=== PATIENT | male | born 1940 | race Caucasian/White ===

== ENCOUNTER 2017-04-06 11:49 | Emergency (ER) | payer OTHER ==
[~2017-04-06] VITALS: Ht 185.4 cm; Wt 86.0 kg
[~2017-04-06 11:49] MED LIST: CEPH500C3 PO; GLUC500C56 PO; TAB-TAB PO; ZOCO40TA PO
[2017-04-06 12:00] VITALS: BP 148/80; PULSE 94; RESP 16; TEMP 98.3; O2SAT 95
--- NOTE | 2017-04-06 13:24 | PD ---
HPI Chief Complaint: Psychiatric Symptoms Time Seen by Provider: 13:22 Travel History International Travel<30 days: No Contact w/Intl Traveler<30days: No Traveled to known affect area: No History of Present Illness HPI Patient comes in under a [place] act by police for suicidal statements. Patient denies any suicidal or homicidal ideations. Patient states that his brother just wanted to get rid of him because [place]. Denies any medical complaints this time. Denies any chest pain, shortness of breath, developing, fevers, change in bowel or bladder, or numbness or tingling anywhere. Denies anything making it better or worse. PFSH Past Medical History Cancer: Yes (PSA WAS ELEVATED IN PROSTATE GOT RADIATION FOR IT ) Social History Alcohol Use: No Tobacco Use: No Substance Use: No Allergies-Medications (Allergen,Severity, Reaction): Coded Allergies: No Known Allergies (Verified Allergy, Mild, 10/23/07) Reported Meds & Prescriptions Reported Meds & Active Scripts Active Review of Systems Except as stated in HPI: all other systems reviewed are Neg Physical Exam Narrative GENERAL: Well-developed, well nourished, in no acute distress, and non-ill appearing. SKIN: Focused skin assessment warm and dry. Patient is well-healing sutures noted on scalp there dry clean intact. There is no signs of infection. HEAD: Atraumatic. Normocephalic. EYES: Pupils equal and round. EOMI. No scleral icterus. No injection or drainage. ENT: No nasal bleeding or discharge. Mucous membranes pink and moist. NECK: Trachea midline. Supple. No nuclear rigidity. CARDIOVASCULAR: Regular rate and rhythm. No murmur appreciated. RESPIRATORY: No accessory muscle use. No respiratory distress. Clear to auscultation. Breath sounds equal bilaterally. MUSCULOSKELETAL: No obvious deformities. No clubbing. No cyanosis. No edema. Full range of motion. NEUROLOGICAL: Awake and alert. No obvious cranial nerve deficits. Motor grossly within normal limits. Normal speech. PSYCHIATRIC: Appropriate mood and affect; insight and judgment normal. Data Data Last Documented VS Vital Signs Date Time Temp Pulse Resp B/P (MAP) Pulse Ox O2 Delivery O2 Flow Rate FiO2 04/06/17 12:00 98.3 94 16 148/80 (102) 95 Orders Orders Complete Blood Count With Diff (04/06/17 12:53) Comprehensive Metabolic Panel (04/06/17 12:53) Psych Screen (04/06/17 12:53) Drug Screen, Random Urine (04/06/17 12:53) Alcohol (Ethanol) (04/06/17 12:53) Salicylates (Aspirin) (04/06/17 12:53) Tylenol (Acetaminophen) (04/06/17 12:53) Labs Laboratory Tests Test 04/06/17 13:30 White Blood Count 10.6 TH/MM3 Red Blood Count 5.11 MIL/MM3 Hemoglobin 17.0 GM/DL Hematocrit 49.0 % Mean Corpuscular Volume 96.0 FL Mean Corpuscular Hemoglobin 33.3 PG Mean Corpuscular Hemoglobin Concent 34.7 % Red Cell Distribution Width 12.9 % Platelet Count 171 TH/MM3 Mean Platelet Volume 7.5 FL Neutrophils (%) (Auto) 91.0 % Lymphocytes (%) (Auto) 4.0 % Monocytes (%) (Auto) 4.5 % Eosinophils (%) (Auto) 0.1 % Basophils (%) (Auto) 0.4 % Neutrophils # (Auto) 9.7 TH/MM3 Lymphocytes # (Auto) 0.4 TH/MM3 Monocytes # (Auto) 0.5 TH/MM3 Eosinophils # (Auto) 0.0 TH/MM3 Basophils # (Auto) 0.0 TH/MM3 CBC Comment DIFF FINAL Differential Comment Blood Urea Nitrogen 19 MG/DL Creatinine 1.00 MG/DL Random Glucose 162 MG/DL Total Protein 7.3 GM/DL Albumin 3.5 GM/DL Calcium Level 8.8 MG/DL Alkaline Phosphatase 75 U/L Aspartate Amino Transf (AST/SGOT) 59 U/L Alanine Aminotransferase (ALT/SGPT) 187 U/L Total Bilirubin 0.9 MG/DL Sodium Level 133 MEQ/L Potassium Level 4.1 MEQ/L Chloride Level 95 MEQ/L Carbon Dioxide Level 28.7 MEQ/L Anion Gap 9 MEQ/L Estimat Glomerular Filtration Rate 72 ML/MIN Salicylates Level LESS THAN 1.7 MG/DL Acetaminophen Level LESS THAN 2.0 MCG/ML Ethyl Alcohol Level LESS THAN 3 MG/DL MDM Medical Decision Making Medical Screen Exam Complete: Yes Emergency Medical Condition: Yes Differential Diagnosis Homicidal, suicidal, electrolyte abnormality, acute psychosis, other Narrative Course Patient was seen and examined. Labs were obtained and reviewed with the exception of a urine drug screen has not been collected yet. Patient medically cleared for further treatment and evaluation by psych. Final disposition per psych. Diagnosis Primary Impression: Medical clearance for psychiatric admission Condition: Stable Christiano Toledo Apr 06, 2017 13:24
[2017-04-06 13:57] LABS: AUTOMATED NEUTROPHIL # 9.7 TH/MM3 (1.8-7.7); BASOPHIL % 0.4 % (0.0-2.0); EOSINOPHIL % 0.1 % (0.0-4.0); HEMO FLAGS DIFF FINAL; LYMPHOCYTE # 0.4 TH/MM3 (1.0-4.8); MEAN CORPUSCULAR HEMOGLOBIN 33.3 PG (27.0-34.0); MEAN CORPUSCULAR HGB CONC 34.7 % (32.0-36.0); MONO % 4.5 % (0.0-8.0); PLATELET COUNT 171 TH/MM3 (150-450); RED BLOOD COUNT 5.11 MIL/MM3 (4.50-5.90); RED CELL DISTRIBUTION WIDTH 12.9 % (11.6-17.2); WHITE BLOOD COUNT 10.6 TH/MM3 (4.0-11.0)
[2017-04-06 14:24] LABS: ANION GAP 9 MEQ/L (5-15); AST (GOT) 59 U/L (15-37); BICARBONATE 28.7 MEQ/L (21.0-32.0); BLOOD UREA NITROGEN 19 MG/DL (7-18); CHLORIDE 95 MEQ/L (98-107); GLOMERULAR FILTRATION RATE 72 ML/MIN (>89); POTASSIUM 4.1 MEQ/L (3.5-5.1); SODIUM (NA) 133 MEQ/L (136-145)
[2017-04-06 14:25] LABS: ALCOHOL LESS THAN 3 MG/DL (0-5)
[2017-04-06 14:27] LABS: ALKALINE PHOSPHATASE 75 U/L (45-117); ALT (GPT) 187 U/L (12-78); TOTAL BILIRUBIN ADULT 0.9 MG/DL (0.2-1.0)
[2017-04-06 14:48] LABS: ACETAMINOPHEN LESS THAN 2.0 MCG/ML (10.0-30.0)
[2017-04-06] MEDS ORDERED: SERT-132 PO (18:12)
[2017-04-06] MEDS ORDERED: LEVE500T8 PO (18:12)
[2017-04-06] MEDS ORDERED: VITA100T54 PO (18:12)
[2017-04-06] MEDS ORDERED: PRED20 PO (18:12)
[2017-04-06] MEDS ORDERED: SIMV20TA PO (18:12)
[2017-04-06] MEDS ORDERED: MECL12.574 PO (18:12)
[2017-04-06] MEDS ORDERED: AMLO5TAB2 PO (18:12)
[2017-04-06 20:46] VITALS: BP_SYST 155; BP_SYST 172; BP_DIAS 82; BP_DIAS 98; PULSE 82; RESP 18; O2SAT 99
[2017-04-07 01:21] VITALS: BP 149/85; PULSE 71; RESP 18; O2SAT 93
[2017-04-07 07:15] VITALS: BP 178/84; PULSE 66; RESP 18; TEMP 98; O2SAT 96
[2017-04-07 11:44] VITALS: BP 184/91; PULSE 77; RESP 18; O2SAT 96
--- NOTE | 2017-04-07 14:41 | PD ---
Physical Exam Time Seen by Provider: 14:40 Narrative Please refer to previous providers documentation for details surrounding the patient's current visit Data Data Last Documented VS Vital Signs Date Time Temp Pulse Resp B/P (MAP) Pulse Ox O2 Delivery O2 Flow Rate FiO2 04/07/17 11:44 77 18 184/91 (122) 96 Room Air 04/07/17 07:15 98.0 Orders Orders Complete Blood Count With Diff (04/06/17 12:53) Comprehensive Metabolic Panel (04/06/17 12:53) Psych Screen (04/06/17 12:53) Drug Screen, Random Urine (04/06/17 12:53) Alcohol (Ethanol) (04/06/17 12:53) Salicylates (Aspirin) (04/06/17 12:53) Tylenol (Acetaminophen) (04/06/17 12:53) Diet Regular Basic (04/07/17 Breakfast) Ed Discharge Order (04/07/17 14:39) Labs Laboratory Tests Test 04/06/17 13:30 04/06/17 15:00 White Blood Count 10.6 TH/MM3 Red Blood Count 5.11 MIL/MM3 Hemoglobin 17.0 GM/DL Hematocrit 49.0 % Mean Corpuscular Volume 96.0 FL Mean Corpuscular Hemoglobin 33.3 PG Mean Corpuscular Hemoglobin Concent 34.7 % Red Cell Distribution Width 12.9 % Platelet Count 171 TH/MM3 Mean Platelet Volume 7.5 FL Neutrophils (%) (Auto) 91.0 % Lymphocytes (%) (Auto) 4.0 % Monocytes (%) (Auto) 4.5 % Eosinophils (%) (Auto) 0.1 % Basophils (%) (Auto) 0.4 % Neutrophils # (Auto) 9.7 TH/MM3 Lymphocytes # (Auto) 0.4 TH/MM3 Monocytes # (Auto) 0.5 TH/MM3 Eosinophils # (Auto) 0.0 TH/MM3 Basophils # (Auto) 0.0 TH/MM3 CBC Comment DIFF FINAL Differential Comment Blood Urea Nitrogen 19 MG/DL Creatinine 1.00 MG/DL Random Glucose 162 MG/DL Total Protein 7.3 GM/DL Albumin 3.5 GM/DL Calcium Level 8.8 MG/DL Alkaline Phosphatase 75 U/L Aspartate Amino Transf (AST/SGOT) 59 U/L Alanine Aminotransferase (ALT/SGPT) 187 U/L Total Bilirubin 0.9 MG/DL Sodium Level 133 MEQ/L Potassium Level 4.1 MEQ/L Chloride Level 95 MEQ/L Carbon Dioxide Level 28.7 MEQ/L Anion Gap 9 MEQ/L Estimat Glomerular Filtration Rate 72 ML/MIN Salicylates Level LESS THAN 1.7 MG/DL Acetaminophen Level LESS THAN 2.0 MCG/ML Ethyl Alcohol Level LESS THAN 3 MG/DL Urine Opiates Screen NEG Urine Barbiturates Screen POS Urine Amphetamines Screen NEG Urine Benzodiazepines Screen NEG Urine Cocaine Screen NEG Urine Cannabinoids Screen NEG MDM Medical Record Reviewed: Yes Supervised Visit with DANIEL: No Narrative Course Patient was seen and evaluated by ER provider, medically cleared. Patient has now been seen and evaluated by psychiatry. [place] act has been lifted. With no further medical needs, patient will be discharged at this time. Diagnosis Primary Impression: Medical clearance for psychiatric admission Additional Impression: Adjustment disorder Qualified Codes: F43.20 - Adjustment disorder, unspecified Referrals: Primary Care Physician Med/Other Pt SpecificInfo: No Change to Meds Disposition: 01 DISCHARGE HOME Condition: Stable Joanne Escobedo Apr 07, 2017 14:41
--- NOTE | 2017-04-07 14:45 | PD ---
History of Present Illness Chief Complaint: Psychiatric Symptoms Time Seen by Provider: 14:00 Travel History International Travel<30 Days: No Contact w/Intl Traveler<30days: No Known affected area: No Legal Status Legal Status: [place] Act [place] Act Signed By: Oliva Betancourt History of Present Illness: History of Present Illness HPI Patient is a 77 year old male with no psychiatric history who comes in under a [place] act initiated by police. The [place] act alleges that he told a home health nurse that he would overdose on his 's oxycodone tablets. He did not make any attempt at harming himself. The patient denies that he is suicidal . He states that he " made a dark joke and it got me in trouble". He states that when the home health nurse asked him if he ever felt suicdal he made the joke about taking his 's pills. He has no psychiatric history and denies that he is feeling depressed. He is active and goes to the [facility] several times a week, is involved with his spiritism, has supportive friends and neighbors and has 2 dogs that he cares for. 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 He is sleeping well and eating well. EMR reviewed. No previous contact with [facility] psychiatry. No substance use. I spoke with his brother , Dennis here in ED. The brother confirms that the patient is very involved in several activities. He has no concerns if he were to be discharged. He will be staying here with him for several more days. PFSH Past Medical History Cancer: Yes (PSA WAS ELEVATED IN PROSTATE GOT RADIATION FOR IT ) Psychiatric History Psychiatric History Hx Psychiatric Treatment: [facility]. Is on Zoloft after 's 8 months ago. History of Inpatient Treatment: No Guns or firearms in home: No Social History since January of 2016 after a 41 year marriage. He is a retired solid waste truck driver. Owns no guns or weapons. No legal history. Hx Alcohol Use: No Hx Tobacco Use: No Hx Substance Use: No Hx of Substance Use Treatment: No Family Psychiatric History Negative Allergies-Medications (Allergen,Severity, Reaction): Coded Allergies: No Known Allergies (Verified Allergy, Mild, 10/23/07) Reported Meds & Prescriptions Reported Meds & Active Scripts Active Reported Simvastatin 20 Mg Tab 20 Mg PO HS Vitamin B-1 (Thiamine HCl) 100 Mg Tab 100 Mg PO DAILY Sertraline (Sertraline HCl) 50 Mg Tab 50 Mg PO DAILY Prednisone 20 Mg Tab 20 Mg PO DAILY Meclizine (Meclizine HCl) 12.5 Mg Tab 12.5 Mg PO TID PRN Levetiracetam 500 Mg Tab 500 Mg PO BID Amlodipine (Amlodipine Besylate) 5 Mg Tab 5 Mg PO DAILY Review of Systems Eyes: COMPLAINS OF: Blurred vision (after recent surgery) Neurologic: COMPLAINS OF: Poor Balance (after recent surgery.) Mental Status Examination Appearance: Appropriate Consciousness: Alert Orientation: x4 Motor Activity: Abnormal gait Speech: Unremarkable Language: Adequate Fund of Knowledge: Adequate Attention and Concentration: Adequate Memory: Unremarkable Mood: Appropriate Affect: Appropriate Thought Process & Associations: Intact, Logical, Goal directed Thought Content: Appropriate Hallucination Type: None Delusion Type: None Suicidal Ideation: No Suicidal Plan: No Suicidal Intention: No Homicidal Ideation: No Homicidal Plan: No Homicidal Intention: No Insight: Adequate Judgment: Adequate MDM Medical Decision Making Medical Record Reviewed: Yes Assessment/Plan 77 year old male with no previous psychiatric history who while being interviewed by home health nurse made a statement that he would take his 's oxycodone. The patient did not make any attempts at harming self, has no previous psychiatric history, no hx of previous suicidal behavior. Furthermore, he is future oriented, would like to be involved in a relationship , with adequate protective factors. Collateral information obtained as well and his brother has no concerns for his safety. The patient does not present any evidence of unstable mental illness as defined under the [place] act. Psychiatrically clear for discharge. BA is lifted. Orders Orders Diet Regular Basic (04/07/17 Breakfast) Ed Discharge Order (04/07/17 14:39) Results Vital Signs Date Time Temp Pulse Resp B/P (MAP) Pulse Ox O2 Delivery O2 Flow Rate FiO2 04/07/17 11:44 77 18 184/91 (122) 96 Room Air 04/07/17 07:15 66 18 04/07/17 07:15 98.0 66 18 178/84 (115) 96 Room Air 04/07/17 01:21 71 18 149/85 (106) 93 Room Air 04/06/17 20:46 82 18 155/82 (106) 99 Room Air Laboratory Tests Test 04/06/17 15:00 Urine Opiates Screen NEG Urine Barbiturates Screen POS Urine Amphetamines Screen NEG Urine Benzodiazepines Screen NEG Urine Cocaine Screen NEG Urine Cannabinoids Screen NEG Diagnosis Primary Impression: Medical clearance for psychiatric admission Additional Impression: Adjustment disorder Psychiatrically Cleared: Yes Referrals: Primary Care Physician Med/ Other Pt Specific Info: No Change to Meds Disposition: 01 DISCHARGE HOME Condition: Stable Problem Qualifiers Additional Impression: Adjustment disorder Qualified Codes: F43.20 - Adjustment disorder, unspecified Rimma York Apr 07, 2017 14:44
[2017-04-07 15:13] VITALS: BP 160/78; TEMP 98
== END 2017-04-07 15:18 | disposition home or self-care (01) ==
LOC: NEDAMB 11:49 → NEPJ 04-07 15:18
DX: F43.20 Adjustment disorder, unspecified (principal)
CPT/HCPCS: 80053; 80307; 85025; 99284